=== PATIENT | female | born 1945 ===

== ENCOUNTER 2024-03-22 06:39 | Day surgery (SDC) | payer MEDICARE ==
[~2024-03-22] VITALS: Ht 170.2 cm; Wt 59.5 kg
[2024-03-22 07:20] VITALS: BP 170/74; PULSE 67; RESP 18
[2024-03-22] MEDS ORDERED: METF-1203 PO (07:20)
[2024-03-22] MEDS ORDERED: NYST1000 PO (07:20)
[2024-03-22] MEDS ORDERED: ARFO15VI20 NEB (07:20)
[2024-03-22] MEDS ORDERED: ALBUTEROL (07:20)
[2024-03-22] MEDS ORDERED: PANT40TA54 PO (07:20)
[2024-03-22] MEDS ORDERED: BUDE0.5A3 (07:20)
[2024-03-22] MEDS ORDERED: ATR0.5NEB NEB (07:20)
[2024-03-22] MEDS ORDERED: LORAZEPAM (07:20)
[2024-03-22] MEDS ORDERED: ROSU20TA73 PO (07:20)
[2024-03-22] MEDS ORDERED: FURO20TA4 PO (07:20)
[2024-03-22] MEDS ORDERED: DILT120C52 PO (07:20)
[2024-03-22] MEDS ORDERED: POTA-205 PO (07:21)
[2024-03-22] MEDS ORDERED: IBUP-1984 PO (07:22)
[2024-03-22] MEDS ORDERED: MIDAZolam 1 MG/ML 5ML VIAL ONE (07:28)
[2024-03-22] MEDS ORDERED: fentaNYL/PF 50MCG/1 ML 2ML syringe ONE (07:28)
[2024-03-22] MEDS ORDERED: LIDOcaine 2% Viscous 15ml cup ONE (07:28)
[2024-03-22 07:56] VITALS: BP 146/85; PULSE 78; RESP 13; O2SAT 100
[2024-03-22 08:06] VITALS: BP 126/77; PULSE 88; RESP 15; O2SAT 98
[2024-03-22 08:14] VITALS: BP 118/71; PULSE 71; RESP 14; O2SAT 98
[2024-03-22 08:24] VITALS: BP 107/68; PULSE 110; RESP 18; O2SAT 98
[2024-03-22 08:34] VITALS: BP 110/65; PULSE 115; RESP 18; O2SAT 98
== END 2024-03-22 08:45 | disposition home or self-care (01) ==
LOC: GI LAB 06:39
PROVIDERS: ATTEND Surgery
DX: K44.9 Diaphragmatic hernia without obstruction or gangrene (principal); K20.90 Esophagitis, unspecified without bleeding; K29.70 Gastritis, unspecified, without bleeding; K31.89 Other diseases of stomach and duodenum
CPT/HCPCS: 43239; G0500; J2250; J3010; J7030; Z7512; 99152; A4620